=== PATIENT | female | born 1950 | race Caucasian/White ===

== ENCOUNTER → 2018-01-29 | Outpatient (CLI) | payer MEDICARE ==
--- NOTE | 2018-01-30 07:58 | MM ---
Reason for exam: additional evaluation requested from prior study. Last mammogram was performed 1 year and 1 month ago. History: Patient is postmenopausal. Family history of breast cancer in daughter at age 48. Benign excisional biopsy. Took hormonal contraceptives for 3 years. Physical Findings: Nurse did not find any significant physical abnormalities on exam. MG 3D Diag Mammo W/Cad PAUL Bilateral CC and MLO view(s) were taken. Prior study comparison: January 12, 2017, mammogram, performed at [facility]. January 10, 2017, mammogram, performed at [facility]. There are scattered fibroglandular densities. Previous mammotome biopsy in the left breast from interval biopsy in [place]. Two groups of calcifications left breast stable since 12/20/16. Additional 1 year follow up recommended to demonstrate 2 years of stability. These results were verbally communicated with the patient and result sheet given to the patient on 01/29/18. ASSESSMENT: Probably benign, BI-RAD 3 RECOMMENDATION: Follow-up diagnostic mammogram of both breasts in 1 year. (left breast total 2 year follow up for calcifications)
== END | disposition home or self-care (01) ==
LOC: RADMAMWWP 10:13
PROVIDERS: ATTEND Family Medicine
DX: R92.8 Other abnormal and inconclusive findings on diagnostic imaging of breast (principal); N63.0 Unspecified lump in unspecified breast
CPT/HCPCS: 77066; G0279; 77062

== ENCOUNTER → 2019-01-30 | Outpatient (CLI) | payer MEDICARE, OTHER ==
--- NOTE | 2019-01-30 10:15 | MM ---
Reason for exam: additional evaluation requested from prior study. Last mammogram was performed 1 year ago. History: Patient is postmenopausal. Family history of breast cancer in daughter at age 48. Benign excisional biopsy of the left breast. Took hormonal contraceptives for 3 years. Physical Findings: Nurse did not find any significant physical abnormalities on exam. MG 3D Diag Mammo W/Cad PAUL Bilateral CC and MLO view(s) were taken. Prior study comparison: January 29, 2018, bilateral MG 3d diag mammo w/cad PAUL. January 12, 2017, mammogram, performed at [facility]. The breast tissue is heterogeneously dense. This may lower the sensitivity of mammography. There are three groups of calcifications in the left upper outer quadrant, stable back to 2017, now can be deemed benign. No suspicious abnormality. No significant new findings when compared with previous films. These results were verbally communicated with the patient and result sheet given to the patient on 01/30/19. ASSESSMENT: Benign, BI-RAD 2 RECOMMENDATION: Routine screening mammogram of both breasts in 1 year.
== END | disposition home or self-care (01) ==
LOC: RADMAMWWP 07:57
PROVIDERS: ATTEND Family Medicine
DX: R92.0 Mammographic microcalcification found on diagnostic imaging of breast (principal)
CPT/HCPCS: 77066; G0279; 77062

== ENCOUNTER → 2020-02-18 | Outpatient (CLI) | payer MEDICARE, OTHER ==
--- NOTE | 2020-02-19 14:05 | MM ---
Reason for exam: screening (asymptomatic). Last mammogram was performed 1 year and 1 month ago. History: Patient is postmenopausal. Family history of breast cancer in daughter at age 48. Benign excisional biopsy of the left breast. Took hormonal contraceptives for 3 years. Physical Findings: A clinical breast exam by your physician is recommended on an annual basis and results should be correlated with mammographic findings. MG 3D Screening Mammo W/Cad Bilateral CC and MLO view(s) were taken. Prior study comparison: January 30, 2019, bilateral MG 3d diag mammo w/cad PAUL. January 29, 2018, bilateral MG 3d diag mammo w/cad PAUL. The breast tissue is heterogeneously dense. This may lower the sensitivity of mammography. Finding: There are typically benign course, grouped, diffuse/scattered calcifications in the left breast. Previous mammotome biopsy in the left breast. Focal asymmetry outer anterior CC view, not clearly evident on MLO view. New finding since January 30, 2019 and January 29, 2018. ASSESSMENT: Incomplete: need additional imaging evaluation, BI-RAD 0 RECOMMENDATION: Special view mammogram of the left breast. If lesion persists on supplemental views, image directed ultrasound is recommended. [facility] will attempt to contact patient to return for supplemental views and ultrasound if indicated.
== END | disposition home or self-care (01) ==
LOC: RADMAMWWP 12:59
PROVIDERS: ATTEND Family Medicine
DX: Z12.31 Encounter for screening mammogram for malignant neoplasm of breast (principal)
CPT/HCPCS: 77063; 77067

== ENCOUNTER → 2020-02-26 | Outpatient (CLI) | payer MEDICARE, OTHER ==
--- NOTE | 2020-02-26 10:18 | MM ---
Reason for exam: additional evaluation requested from abnormal screening. Last mammogram was performed less than 1 month ago. History: Patient is postmenopausal. Family history of breast cancer in daughter at age 44. Benign excisional biopsy of the left breast. Took hormonal contraceptives for 3 years. Physical Findings: Nurse did not find any significant physical abnormalities on exam. MG 3D Work Up W/Cad LT CC and MLO view(s) were taken of the left breast. Prior study comparison: February 18, 2020, bilateral MG 3d screening mammo w/cad. January 30, 2019, bilateral MG 3d diag mammo w/cad PAUL. Nodular outer left breast 8.1cm from nipple. These results were verbally communicated with the patient and result sheet given to the patient on 02/26/20. ASSESSMENT: Incomplete: need additional imaging evaluation, BI-RAD 0 RECOMMENDATION: Ultrasound of the left breast.
--- NOTE | 2020-02-26 10:21 | USB ---
Reason for exam: additional evaluation requested from abnormal screening. History: Patient is postmenopausal. Family history of breast cancer in daughter at age 44. Benign excisional biopsy of the left breast. Took hormonal contraceptives for 3 years. US Breast Workup Limited LT Left limited breast ultrasound including focal area of concern, retroareolar and axilla demonstrates a 0.5 x 0.4 x 0.4cm cystic cluster at 3 o'clock and a 0.6 x 0.3 x 0.5cm cystic lesion at 3 o'clock. These results were verbally communicated with the patient and result sheet given to the patient on 02/26/20. ASSESSMENT: Benign, BI-RAD 2 RECOMMENDATION: Return to routine screening mammogram schedule for both breasts.
== END | disposition home or self-care (01) ==
LOC: RADMAMWWP 07:38
PROVIDERS: ATTEND Family Medicine
DX: R92.8 Other abnormal and inconclusive findings on diagnostic imaging of breast (principal)
CPT/HCPCS: 77065; 76642; G0279; 77061

== ENCOUNTER → 2021-03-03 | Outpatient (CLI) | payer MEDICARE, OTHER ==
--- NOTE | 2021-03-08 12:19 | MM ---
Reason for exam: screening (asymptomatic). Last mammogram was performed 1 year ago. History: Patient is postmenopausal. Family history of breast cancer in daughter at age 44. Benign excisional biopsy of the left breast. Took hormonal contraceptives for 3 years. Physical Findings: A clinical breast exam by your physician is recommended on an annual basis and results should be correlated with mammographic findings. MG 3D Screening Mammo W/Cad Bilateral CC and MLO view(s) were taken. Prior study comparison: February 18, 2020, bilateral MG 3d screening mammo w/cad. January 30, 2019, bilateral MG 3d diag mammo w/cad PAUL. January 29, 2018, bilateral MG 3d diag mammo w/cad PAUL. December 20, 2016, mammogram, performed at [facility]. Finding: There are indeterminate calcifications in the 5 o'clock position of the left breast. New finding since February 18, 2020, January 30, 2019, January 29, 2018, and December 20, 2016. ASSESSMENT: Incomplete: need additional imaging evaluation, BI-RAD 0 RECOMMENDATION: Special view mammogram of the left breast. [facility] will attempt to contact patient to return for supplemental views.
== END | disposition home or self-care (01) ==
LOC: RADMAMWWP 08:45
PROVIDERS: ATTEND Family Medicine
DX: Z12.31 Encounter for screening mammogram for malignant neoplasm of breast (principal); Z80.3 Family history of malignant neoplasm of breast; Z78.0 Asymptomatic menopausal state
CPT/HCPCS: 77063; 77067

== ENCOUNTER → 2021-03-10 | Outpatient (CLI) | payer MEDICARE, OTHER ==
--- NOTE | 2021-03-11 14:56 | MM ---
Reason for exam: additional evaluation requested from abnormal screening. Last mammogram was performed less than 1 month ago. History: Patient is postmenopausal. Family history of breast cancer in daughter at age 44. Benign excisional biopsy of the left breast. Took hormonal contraceptives for 3 years. Physical Findings: Nurse did not find any significant physical abnormalities on exam. MG 3D Work Up W/Cad LT Spot compression CC and LM view(s) were taken of the left breast. Prior study comparison: March 03, 2021, bilateral MG 3d screening mammo w/cad. February 26, 2020, left breast MG 3d work up w/cad LT. February 18, 2020, bilateral MG 3d screening mammo w/cad. Finding: There are increased coarse heterogeneous, grouped/clustered calcifications in the upper outer quadrant, middle position of the left breast consistent with mass, possible fibroadenoma. New finding since March 03, 2021, February 26, 2020, and February 18, 2020. These results were verbally communicated with the patient and result sheet given to the patient on 03/10/21. ASSESSMENT: Suspicious, BI-RAD 4 RECOMMENDATION: Stereotactic core biopsy of the left breast. Called Dr. Frias's office with mammographic findings and has scheduled an appointment for the patient for 03/19/21 at 9:[address] Carnes. Biopsy scheduled for 04/01/21 at 8:00. PRELIMINARY REPORT CALLED AND FAXED TO DR. CARNES ON 03/11/21.
== END | disposition home or self-care (01) ==
LOC: RADMAMWWP 14:40
PROVIDERS: ATTEND Family Medicine
DX: R92.1 Mammographic calcification found on diagnostic imaging of breast (principal); Z80.3 Family history of malignant neoplasm of breast; Z78.0 Asymptomatic menopausal state
CPT/HCPCS: 77065; G0279; 77061

== ENCOUNTER → 2021-04-01 | Day surgery (SDC) | payer MEDICARE, OTHER ==
--- NOTE | 2021-04-01 09:38 | P.PCN ---
Date of Procedure: 04/01/21 Preoperative Diagnosis: Abnormal left breast mammogram Postoperative Diagnosis: Same Procedure(s) Performed: Left breast stereotactic core biopsy Anesthesia: local Surgeon: Katelin Velazquez Pathology: other (Breast tissue) Condition: stable Disposition: same day Indications for Procedure: Increasing calcifications in the left breast in the upper outer quadrant/mammogram reviewed with Dr. Smart Operative Findings: Radiographic of specimen revealed calcifications of concern had been sampled Description of Procedure: Christian is 70 year old white female who was noted to have increasing microcalcifications of concern in the left breast in the upper outer quadrant. Stereotactic core biopsy was recommended. Risks and benefits of the procedure were discussed with the patient. Risks include but are not limited to bleeding, infection, reaction to the anesthetic. Additionally if the lesion pathology were to be discordant additional samples may be recommended. Alternatives such as watchful waiting or resection in the operating room were discussed but not recommended. The patient was brought to the stereotactic core biopsy room. She was positioned prone on the lo-rad table. A CC from above approach was utilized. A spout positioner film was obtained. The area of concern was identified. The lesion was targeted. The breast was prepped using Betadine. 20 mL of 1% lidocaine were used to anesthetize the area of concern. A 9-gauge vacuum-assisted core rotating biopsy needle was driven to the correct coordinates. A prefire film was obtained. The needle appeared to be in the correct location. The needle was fired. A post fire film was obtained. The needle appeared to be in the correct location. 15 core specimens were obtained. Radiograph of the specimen revealed the calcifications of concern had been removed. The area of biopsy was lavaged. A secure marked top hat clip was placed. The clip appeared to be in the correct location. The patient tolerated the procedure in stable condition. She will follow with Dr. Ramsey in 1 week. The specimen was sent to pathology.
--- NOTE | 2021-04-01 10:56 | MM ---
Christian is 70 year old white female who was noted to have increasing microcalcifications of concern in the left breast in the upper outer quadrant. Stereotactic core biopsy was recommended. Risks and benefits of the procedure were discussed with the patient. Risks include but are not limited to bleeding, infection, reaction to the anesthetic. Additionally if the lesion pathology were to be discordant additional samples may be recommended. Alternatives such as watchful waiting or resection in the operating room were discussed but not recommended. The patient was brought to the stereotactic core biopsy room. She was positioned prone on the lo-rad table. A CC from above approach was utilized. A pharmacy innovation assistant film was obtained. The area of concern was identified. The lesion was targeted. The breast was prepped using Betadine. 20 mL of 1% lidocaine were used to anesthetize the area of concern. A 9-gauge vacuum-assisted core rotating biopsy needle was driven to the correct coordinates. A prefire film was obtained. The needle appeared to be in the correct location. The needle was fired. A post fire film was obtained. The needle appeared to be in the correct location. 15 core specimens were obtained. Radiograph of the specimen revealed the calcifications of concern had been removed. The area of biopsy was lavaged. A secure ankit top hat clip was placed. The clip appeared to be in the correct location. The patient tolerated the procedure in stable condition. She will follow with Dr. Ramsey in 1 week. The specimen was sent to pathology. Postprocedure radiograph revealed the secure ankit clip was in the correct location of the biopsy. [facility]
[2021-04-01 16:23] VITALS: BP 141/91; PULSE 79; RESP 18; TEMP 98.1
== END ==
LOC: RADMAMWWP 07:17
PROVIDERS: ATTEND Surgery
DX: N60.22 Fibroadenosis of left breast (principal); R92.0 Mammographic microcalcification found on diagnostic imaging of breast; N60.12 Diffuse cystic mastopathy of left breast; R92.8 Other abnormal and inconclusive findings on diagnostic imaging of breast
CPT/HCPCS: 88305; 19081; A4648; J2001

== ENCOUNTER → 2021-04-08 | Outpatient (CLI) | payer MEDICARE, OTHER ==
[2021-04-08 15:52] VITALS: BP 135/90; PULSE 88; RESP 16; TEMP 97.5
--- NOTE | 2021-04-08 16:19 | P.PN ---
Subjective Progress Note Date: 04/08/21 Principal diagnosis: Fibrocystic breast changes Patient is a 70 year old white female status post left breast core biopsy on 04-01-21. Pathology was benign concordant. Patient is doing well at this time. She has no complaints related to the procedure. Objective - Vital Signs Vital signs: Vital Signs Temp 97.5 F L 04/08/21 15:46 Pulse 88 04/08/21 15:46 Resp 16 04/08/21 15:46 BP 135/90 04/08/21 15:46 Pulse Ox Intake & Output 04/07/21 04/08/21 04/08/21 18:59 06:59 18:59 Weight 86.636 kg - Constitutional General appearance: Present: cooperative - EENT Eyes: Present: EOMI ENT: Present: hearing grossly normal - Neck Neck: Present: normal ROM - Respiratory Respiratory: bilateral: CTA - Cardiovascular Rhythm: regular Heart sounds: normal: S1, S2 - Integumentary Integumentary Comment(s): Biopsy site and dry Mild ecchymosis No evidence of hematoma or infection Assessment and Plan Assessment: Impression: fibrocystic changes left breast Plan: 1. left breast mammogram in 6 months with appointment at that time CC: Dr. Frias
== END ==
LOC: WWCWWP 15:26
PROVIDERS: ATTEND Surgery
DX: N60.12 Diffuse cystic mastopathy of left breast (principal)

== ENCOUNTER → 2021-09-30 | Outpatient (CLI) | payer MEDICARE, OTHER ==
--- NOTE | 2021-09-30 11:58 | MM ---
Reason for Exam: Follow-up at short interval from prior study. Last screening mammogram was performed 7 month(s) ago. Patient History: Menarche at age 13. First Full-Term at age 18. Postmenopausal. Patient used Hormonal Contraceptives for 3 years. Benign Excisional Biopsy on the left side. 04/01/2021, Benign Core Biopsy on the left side. Daughter had breast cancer, age 44. Risk Values: Usha 5 year model risk: 4.8%. NCI Lifetime model risk: 13.5%. Prior Study Comparison: 02/26/2020 Left Diagnostic Mammogram, [facility]. 03/03/2021 Bilateral Screening Mammogram, [facility]. 03/10/2021 Left Diagnostic Mammogram, [facility]. Tissue Density: Left: There are scattered fibroglandular densities. Findings: Analyzed By CAD. Previous 12-1 o'clock centrally located ribbon clip from prior biopsy. More recently placed upper outer quadrant microclip at the site of biopsy 7 months ago. A few scattered dystrophic and loosely grouped punctate calcifications remain unchanged. Mild benign vascular calcifications noted medially. No significant change from prior exams. Overall Assessment: Benign, BI-RAD 2 Management: Screening Mammogram of both breasts in 5 months. 1. Return to routine annual screening mammograms both breasts, due in 5 months. 2. Patient should continue monthly self breast exams. A clinical breast exam by your physician is recommended on an annual basis. 3. This exam should not preclude additional follow-up of suspicious palpable abnormalities. Results will be given to the patient during follow-up visit with her surgeon next week.. Electronically signed and approved by: Herb Moore M.D. Radiologist
== END | disposition home or self-care (01) ==
LOC: RADMAMWWP 10:47
PROVIDERS: ATTEND Surgery
DX: R92.8 Other abnormal and inconclusive findings on diagnostic imaging of breast (principal); Z78.0 Asymptomatic menopausal state; Z80.3 Family history of malignant neoplasm of breast
CPT/HCPCS: 77065; G0279; 77061

== ENCOUNTER → 2021-10-07 | Outpatient (CLI) | payer MEDICARE, OTHER ==
[2021-10-07 12:35] VITALS: BP 162/84; PULSE 81; RESP 16
--- NOTE | 2021-10-07 12:56 | P.PN ---
Subjective Progress Note Date: 10/07/21 Principal diagnosis: Fibrocystic breast changes Christian is a 71 year old white female seen in consultation for Dr. Frias regarding a mammographic abnormality in the left breast. She underwent a bilateral screening mammogram on [id number] after which magnification views of the left breast were requested. These were performed on [id number]. This revealed an increased coarse heterogeneous group/cluster calcifications in the upper outer quadrant middle portion of the left breast. Stereotactic core biopsy was recommended. The patient had not noted any new lumps masses or nodules of concern in either breast. She was not complaining of any nipple discharge or skin changes. She had not had any recent trauma or infection in the breast. She had a left breast sterobiopsy in the past which was benign. Has not had any other surgery on her breast. She underwent a left breast stero biopsy on 04-01-21 which was benign concordant. She had a repeat left breast mammogram on 09-30-21 which was BIRAD 2. He is not complaining of any new lumps masses or nodules of concern in either breast. 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 drugs: Marijuana 50 years ago - Constitutional Constitutional: Denies chills, Denies fever - EENT Eyes: denies blurred vision, denies pain Ears: deny: decreased hearing, tinnitus Ears, nose, mouth and throat: Denies headache, Denies sore throat - Breasts Breasts: bilateral: as per HPI - Cardiovascular Comment: HTN Cardiovascular: Denies chest pain, Denies shortness of breath - Respiratory Respiratory: Denies cough - Gastrointestinal Gastrointestinal: Denies abdominal pain, Denies diarrhea, Denies nausea, Denies vomiting - Genitourinary (Female) Genitourinary: Denies dysuria, Denies hematuria - Menstruation Menstruation: Reports postmenopausal - Musculoskeletal Musculoskeletal: Reports myalgias - Integumentary Integumentary: Denies pruritus, Denies rash - Neurological Neurological: Denies numbness, Denies weakness - Psychiatric Psychiatric: Denies anxiety, Denies depression - Endocrine Comment: diabetes - Hematologic/Lymphatic Comment: baby aspirin - Allergic/Immunologic Allergic/Immunologic: Reports as per HPI Objective - Vital Signs Vital signs: Vital Signs Temp Pulse 81 10/07/21 12:32 Resp 16 10/07/21 12:32 BP 162/84 10/07/21 12:32 Pulse Ox 96 10/07/21 12:32 FiO2 Intake & Output 10/06/21 10/07/21 10/07/21 18:59 06:59 18:59 Weight 86.636 kg - Exam BMI 31.8 - Constitutional General appearance: Present: cooperative - EENT Eyes: Present: EOMI ENT: Present: hearing grossly normal - Neck Neck: Present: normal ROM - Respiratory Respiratory: bilateral: CTA - Cardiovascular Rhythm: regular Heart sounds: normal: S1, S2 - Integumentary Integumentary: Present: normal turgor - Musculoskeletal Musculoskeletal: Present: gait normal - Psychiatric Psychiatric: Present: A&O x's 3, appropriate affect, intact judgment & insight - Additional findings Additional findings: Breast Exam: BRA: 42D inspection: Bladder grade 3 ptosis Palpation: Right breast: Multi-positional exam either cystic changes no dominant masses or nodules of concern Right axilla: No adenopathy of concern Left breast: Multi-positional exam no dominant masses or nodules of concern Left axilla: No adenopathy of concern Assessment and Plan Assessment: Impression: Diabetes Hypertension Fibrocystic breast changes Stereotactic core biopsy left breast benign/recent left breast mammogram [id number] benign BIRADS 2 Plan: Repeat bilateral mammogram in 6 months with physician exam at that time CC: Dr. Frias
== END ==
LOC: WWCWWP 11:53
PROVIDERS: ATTEND Surgery
DX: R92.8 Other abnormal and inconclusive findings on diagnostic imaging of breast (principal); N60.11 Diffuse cystic mastopathy of right breast; N60.12 Diffuse cystic mastopathy of left breast; E11.9 Type 2 diabetes mellitus without complications; I10 Essential (primary) hypertension; Z87.891 Personal history of nicotine dependence

== ENCOUNTER → 2022-03-10 | Outpatient (CLI) | payer MEDICARE, OTHER ==
--- NOTE | 2022-03-11 09:10 | MM ---
Reason for Exam: Screening (asymptomatic). Last screening mammogram was performed 12 month(s) ago. Patient History: Menarche at age 13. First Full-Term at age 18. Postmenopausal. Patient used Hormonal Contraceptives for 3 years. Benign Excisional Biopsy on the left side. 04/01/2021, Benign Core Biopsy on the left side. Daughter had breast cancer, age 44. Risk Values: Usha 5 year model risk: 4.8%. NCI Lifetime model risk: 13.5%. Prior Study Comparison: 12/20/2016 Screening Mammogram, [facility]. 01/10/2017 Screening Mammogram, [facility]. 01/12/2017 Screening Mammogram, [facility]. 01/29/2018 Bilateral Diagnostic Mammogram, [facility]. 01/30/2019 Bilateral Diagnostic Mammogram, [facility]. 02/18/2020 Bilateral Screening Mammogram, [facility]. 02/26/2020 Left Diagnostic Mammogram, [facility]. 03/03/2021 Bilateral Screening Mammogram, [facility]. 03/10/2021 Left Diagnostic Mammogram, [facility]. 09/30/2021 Left MG 3D diag mammo w/cad LT, [facility]. Tissue Density: There are scattered fibroglandular densities. Findings: Analyzed By CAD. There is no suspicious group of microcalcifications or new suspicious mass in either breast. There are 2 biopsy clips within the left breast. Scattered dystrophic and loosely grouped punctate calcifications remain unchanged. Benign vascular calcifications noted. No significant change from prior exams. Overall Assessment: Benign, BI-RAD 2 Management: Screening Mammogram of both breasts in 1 year. A clinical breast exam by your physician is recommended on an annual basis and results should be correlated with mammographic findings. Electronically signed and approved by: Daren Mcgovern D.O.
== END | disposition home or self-care (01) ==
LOC: RADMAMWWP 08:49
PROVIDERS: ATTEND Surgery
DX: Z12.31 Encounter for screening mammogram for malignant neoplasm of breast (principal); Z78.0 Asymptomatic menopausal state; Z80.3 Family history of malignant neoplasm of breast; Z98.890 Other specified postprocedural states
CPT/HCPCS: 77063; 77067

== ENCOUNTER → 2022-03-18 | Outpatient (CLI) | payer MEDICARE, OTHER ==
[2022-03-18 14:54] VITALS: BP 142/88; PULSE 70; RESP 18; TEMP 97.7
--- NOTE | 2022-03-18 15:40 | P.PN ---
Subjective Progress Note Date: 03/18/22 Principal diagnosis: fibrocystic breast changes Fibrocystic breast changes Christian is a 71 year old white female seen in consultation for Dr. Frias regarding a mammographic abnormality in the left breast. She underwent a bilateral screening mammogram on [id number] after which magnification views of the left breast were requested. These were performed on [id number]. This revealed an increased coarse heterogeneous group/cluster calcifications in the upper outer quadrant middle portion of the left breast. Stereotactic core biopsy was recommended. The patient had not noted any new lumps masses or nodules of concern in either breast. She was not complaining of any nipple discharge or skin changes. She had not had any recent trauma or infection in the breast. She had a left breast sterobiopsy in the past which was benign. Has not had any other surgery on her breast. She underwent a left breast stero biopsy on 04-01-21 which was benign concordant. She had a repeat left breast mammogram on 09-30-21 which was BIRAD 2. He is not complaining of any new lumps masses or nodules of concern in either breast. She had a bilateral mammogram on 03-10-23 which was BIRAD 2. She is not complaining of any lumps, masses, or nodules of concern. 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 drugs: Marijuana 50 years ago - Constitutional Constitutional: Denies chills, Denies fever - EENT Eyes: denies blurred vision, denies pain Ears: deny: decreased hearing, tinnitus Ears, nose, mouth and throat: Denies headache, Denies sore throat - Breasts Breasts: bilateral: as per HPI - Cardiovascular Comment: HTN Cardiovascular: Denies chest pain, Denies shortness of breath - Respiratory Respiratory: Denies cough - Gastrointestinal Gastrointestinal: Denies abdominal pain, Denies diarrhea, Denies nausea, Denies vomiting - Genitourinary (Female) Genitourinary: Denies dysuria, Denies hematuria - Menstruation Menstruation: Reports postmenopausal - Musculoskeletal Musculoskeletal: Reports myalgias - Integumentary Integumentary: Denies pruritus, Denies rash - Neurological Neurological: Denies numbness, Denies weakness - Psychiatric Psychiatric: Denies anxiety, Denies depression - Endocrine Comment: diabetes - Hematologic/Lymphatic Comment: baby aspirin - Allergic/Immunologic Allergic/Immunologic: Reports as per HPI Objective - Vital Signs Vital signs: Vital Signs Temp 97.7 F 03/18/22 14:50 Pulse 70 03/18/22 14:50 Resp 18 03/18/22 14:50 BP 142/88 03/18/22 14:50 Pulse Ox 98 03/18/22 14:50 FiO2 Intake & Output 03/17/22 03/18/22 03/18/22 18:59 06:59 18:59 Weight 86.636 kg - Constitutional General appearance: Present: cooperative - EENT Eyes: Present: EOMI ENT: Present: hearing grossly normal - Neck Neck: Present: normal ROM - Respiratory Respiratory: bilateral: CTA - Cardiovascular Rhythm: regular Heart sounds: normal: S1, S2 - Gastrointestinal General gastrointestinal: Present: soft - Integumentary Integumentary: Present: normal turgor - Musculoskeletal Musculoskeletal: Present: gait normal - Psychiatric Psychiatric: Present: A&O x's 3, appropriate affect, intact judgment & insight - Additional findings Additional findings: Breast Exam: BRA: 42D inspection: bilateral grade 3 ptosis Palpation: Right breast: Multi-positional exam fibrocystic changes no dominant masses or nodules of concern Right axilla: No adenopathy of concern Left breast: Multi-positional exam no dominant masses or nodules of concern, fibrocystic changes Left axilla: No adenopathy of concern Assessment and Plan Assessment: Impression: Diabetes Hypertension Fibrocystic breast changes recent bilateral mammogram; 03-10-22 BIRAD 2 high risk jose evaluation Plan: bilateral mammogram in 1 year with physician exam at that time CC: Dr. Amauri Frias
== END ==
LOC: WWCWWP 14:39
PROVIDERS: ATTEND Surgery
DX: Z12.31 Encounter for screening mammogram for malignant neoplasm of breast (principal); I10 Essential (primary) hypertension; R92.8 Other abnormal and inconclusive findings on diagnostic imaging of breast; E11.9 Type 2 diabetes mellitus without complications

== ENCOUNTER → 2023-03-14 | Outpatient (CLI) | payer MEDICARE, OTHER ==
--- NOTE | 2023-03-14 16:51 | MM ---
Reason for Exam: Screening (asymptomatic). Last mammogram was performed 1 year(s) and 1 month(s) ago. Patient History: Menarche at age 13. First Full-Term at age 18. Postmenopausal. Patient used Hormonal Contraceptives for 3 years. Benign Excisional Biopsy on the left side. 04/01/2021, Benign Core Biopsy on the left side. Daughter had breast cancer, age 44. Risk Values: Usha 5 year model risk: 4.8%. NCI Lifetime model risk: 12.9%. Prior Study Comparison: 03/10/2021 Left Diagnostic Mammogram, [facility]. 09/30/2021 Left MG 3D diag mammo w/cad LT, [facility]. 03/10/2022 Bilateral MG 3D screening mammo w/cad, [facility]. Tissue Density: There are scattered fibroglandular densities. Findings: Analyzed By CAD. Pattern appears symmetrical and stable. Benign vascular calcifications present. There are some grouped round calcifications in the outer anterior left breast. These are increasing. Magnification views recommended. Core marker within the left breast. Right Breast: No suspicious groups of microcalcifications, spiculated or lobular masses, architectural distortion or other secondary signs of malignancy are mammographically apparent. Overall Assessment: Incomplete: need additional imaging evaluation, BI-RAD 0 Management: Diagnostic Mammogram of the left breast. A negative mammogram report should not preclude additional follow up of suspicious palpable abnormalities. Patient should continue monthly self breast exam. A clinical breast exam by your physician is recommended on an annual basis and results should be correlated with mammographic findings. Electronically signed and approved by: Roni Smart D.O. Radiologis
== END | disposition home or self-care (01) ==
LOC: RADMAMWWP 08:04
PROVIDERS: ATTEND Surgery
DX: Z12.31 Encounter for screening mammogram for malignant neoplasm of breast (principal); Z78.0 Asymptomatic menopausal state; Z80.3 Family history of malignant neoplasm of breast
CPT/HCPCS: 77063; 77067

== ENCOUNTER → 2023-03-17 | Outpatient (CLI) | payer MEDICARE, OTHER ==
[2023-03-17 13:58] VITALS: BP 166/91; PULSE 74; RESP 18; TEMP 97.5
--- NOTE | 2023-03-17 14:15 | P.PN ---
Subjective Progress Note Date: 03/17/23 Principal diagnosis: fibrocystic breast changes Fibrocystic breast changes Christian is a 72 year old white female seen in consultation for Dr. Frias regarding a mammographic abnormality in the left breast. She underwent a bilateral screening mammogram on [id number] after which magnification views of the left breast were requested. These were performed on [id number]. This revealed an increased coarse heterogeneous group/cluster calcifications in the upper outer quadrant middle portion of the left breast. Stereotactic core biopsy was recommended. The patient had not noted any new lumps masses or nodules of concern in either breast. She was not complaining of any nipple discharge or skin changes. She had not had any recent trauma or infection in the breast. She had a left breast sterobiopsy in the past which was benign. Has not had any other surgery on her breast. She underwent a left breast stero biopsy on 04-01-21 which was benign concordant. She had a repeat left breast mammogram on 09-30-21 which was BIRAD 2. She is not complaining of any new lumps masses or nodules of concern in either breast. She had a bilateral mammogram on 03-14-23 which was BIRAD 0. Diagnostic left breast mammogram recommended. She is not complaining of any lumps, masses, or nodules of concern. 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 drugs: Marijuana 50 years ago - Constitutional Constitutional: Denies chills, Denies fever - EENT Eyes: denies blurred vision, denies pain Ears: deny: decreased hearing, tinnitus Ears, nose, mouth and throat: Denies headache, Denies sore throat - Breasts Breasts: bilateral: as per HPI - Cardiovascular Comment: HTN Cardiovascular: Denies chest pain, Denies shortness of breath - Respiratory Respiratory: Denies cough - Gastrointestinal Gastrointestinal: Denies abdominal pain, Denies diarrhea, Denies nausea, Denies vomiting - Genitourinary (Female) Genitourinary: Denies dysuria, Denies hematuria - Menstruation Menstruation: Reports postmenopausal - Musculoskeletal Musculoskeletal: Reports myalgias - Integumentary Integumentary: Denies pruritus, Denies rash - Neurological Neurological: Denies numbness, Denies weakness - Psychiatric Psychiatric: Denies anxiety, Denies depression - Endocrine Comment: diabetes - Hematologic/Lymphatic Comment: baby aspirin - Allergic/Immunologic Allergic/Immunologic: Reports as per HPI Objective - Vital Signs Vital signs: Vital Signs Temp 97.5 F L 03/17/23 13:50 Pulse 74 03/17/23 13:50 Resp 18 03/17/23 13:50 BP 166/91 03/17/23 13:50 Pulse Ox 97 03/17/23 13:50 FiO2 Intake & Output 03/16/23 03/17/23 03/17/23 18:59 06:59 18:59 Weight 83.915 kg - Constitutional General appearance: Present: cooperative - EENT Eyes: Present: EOMI ENT: Present: hearing grossly normal - Neck Neck: Present: normal ROM - Respiratory Respiratory: bilateral: CTA - Cardiovascular Heart sounds: normal: S1, S2 - Integumentary Integumentary: Present: normal turgor - Musculoskeletal Musculoskeletal: Present: gait normal - Psychiatric Psychiatric: Present: A&O x's 3, appropriate affect, intact judgment & insight - Additional findings Additional findings: Breast Exam: BRA: 42D inspection: bilateral grade 3 ptosis Palpation: Right breast: Multi-positional exam fibrocystic changes no dominant masses or nodules of concern Right axilla: No adenopathy of concern Left breast: Multi-positional exam no dominant masses or nodules of concern, fibrocystic changes Left axilla: No adenopathy of concern Assessment and Plan Assessment: Impression: Diabetes Hypertension Fibrocystic breast changes recent bilateral mammogram; 03-10-22 BIRAD 2 high risk jose evaluation; have discussed chemoprophylaxis and she has declined at this time Plan: left breast diagnostic mammogram follow up after this CC: Dr. Amauri Frias
== END ==
LOC: WWCWWP 13:38
PROVIDERS: ATTEND Surgery
DX: N60.12 Diffuse cystic mastopathy of left breast (principal); E11.9 Type 2 diabetes mellitus without complications; I10 Essential (primary) hypertension; Z87.891 Personal history of nicotine dependence; Z79.82 Long term (current) use of aspirin; Z79.899 Other long term (current) drug therapy; Z79.85 Long-term (current) use of injectable non-insulin antidiabetic drugs; Z79.84 Long term (current) use of oral hypoglycemic drugs; Z79.4 Long term (current) use of insulin

== ENCOUNTER → 2023-03-20 | Outpatient (CLI) | payer MEDICARE, OTHER ==
--- NOTE | 2023-03-20 10:09 | MM ---
Reason for Exam: Additional evaluation requested from abnormal screening. Last screening mammogram was performed less than 1 month ago. Patient History: Menarche at age 13. First Full-Term at age 18. Postmenopausal. Patient used Hormonal Contraceptives for 3 years. Benign Excisional Biopsy on the left side. 04/01/2021, Benign Core Biopsy on the left side. Daughter had breast cancer, age 44. Risk Values: Usha 5 year model risk: 4.8%. NCI Lifetime model risk: 12.9%. Prior Study Comparison: 09/30/2021 Left MG 3D diag mammo w/cad , [facility]. 03/10/2022 Bilateral MG 3D screening mammo w/cad, [facility]. 03/14/2023 Bilateral MG 3D screening mammo w/cad, [facility]. Tissue Density: Left: The breast tissue is heterogeneously dense. This may lower the sensitivity of mammography. Findings: Analyzed By CAD. There are an increasing number of calcifications in the upper outer aspect left breast 2:00 position 7 cm from the nipple. Overall Assessment: Suspicious, BI-RAD 4 Management: Stereotactic Core Biopsy of the left breast. A negative mammogram report should not preclude additional follow up of suspicious palpable abnormalities. Patient should continue monthly self breast exam. A clinical breast exam by your physician is recommended on an annual basis and results should be correlated with mammographic findings. Electronically signed and approved by: Roni Smart D.O. Radiologis
== END | disposition home or self-care (01) ==
LOC: RADMAMWWP 09:21
PROVIDERS: ATTEND Surgery
DX: R92.322 Mammographic fibroglandular density, left breast (principal); Z78.0 Asymptomatic menopausal state; Z80.3 Family history of malignant neoplasm of breast
CPT/HCPCS: 77061; 77065

== ENCOUNTER → 2023-04-06 | Day surgery (SDC) | payer MEDICARE, OTHER ==
[2023-04-06 07:53] VITALS: RESP 16; TEMP 98.1
[2023-04-06 08:46] VITALS: BP 160/81; PULSE 79
--- NOTE | 2023-04-07 08:48 | MM ---
Date of Procedure: 04/06/23 Preoperative Diagnosis: Microcalcifications of concern left breast Postoperative Diagnosis: Same Procedure(s) Performed: Left breast stereotactic core biopsy Anesthesia: local Surgeon: Katelin Velazquez Pathology: other (Breast tissue/radiograph of specimen reveals microcalcifications of concern) Condition: stable Disposition: same day Indications for Procedure: Microcalcifications of concern left breast Operative Findings: Radiograph of specimen reveals microcalcifications of concern Description of Procedure: Patient is a 72-year-old white female who on a routine mammogram was noted to have microcalcifications of concern in her left breast. They were increasing in number in the upper outer aspect of the breast. She is status post core biopsy of the left breast several times in the past, all have been benign. She has a history of a daughter with breast cancer at the age of 44. On examination the patient did not have any dominant lumps masses or nodules of concern in either breast. The patient was recommended to undergo a stereotactic core biopsy of the left breast. She understood and wished to proceed. She was taken to the core biopsy room. She was positioned in the upright chair. Transition Of Care Specialist film was obtained and the area of concern was identified. A lateral to medial approach was utilized. The lesion was targeted. The breast was prepped using chlorhexidine. 20 cc of 1% lidocaine were used to anesthetize the area of concern. A 9 gauge vacuum-assisted core rotating biopsy needle was driven to the correct coordinates. A prefire film was obtained. The needle was noted to be in the correct location. The needle was fired. The needle was noted to be in the correct location on a post fire film. 13 core biopsy specimens were obtained. Radiograph of the specimen revealed the calcifications of concern. A secure ankit Top-Hat clip was placed. The clip was noted to be in the correct location. The specimen was sent to pathology. The patient will follow-up with Dr. Ramsey in 1 week. The patient tolerated the procedure in stable condition. SHERIE
== END ==
LOC: RADMAMWWP 07:18
PROVIDERS: ATTEND Surgery
DX: D24.2 Benign neoplasm of left breast (principal); N60.12 Diffuse cystic mastopathy of left breast; R92.1 Mammographic calcification found on diagnostic imaging of breast
CPT/HCPCS: 88305; 19081; A4648; J2001

== ENCOUNTER → 2023-04-13 | Outpatient (CLI) | payer MEDICARE, OTHER ==
--- NOTE | 2023-04-13 10:16 | P.PN ---
Subjective Progress Note Date: 04/13/23 Principal diagnosis: fibrocystic breast changes Christian is a 72 year old white female status post stero-core biopsy of the left breast on 04-06-23 whic was benign concordant, fibrocystic changes. This was personally reviewed with radiology. She tolerated the procedure without any difficulty. Usha risk evaluation from bilateral mammogram in 03-14-2023: 5-year: 4.8% NCI lifetime risk: 12.9% Patient at this time has declined chemo-prophylaxis Objective - Constitutional General appearance: Present: cooperative - EENT Eyes: Present: EOMI ENT: Present: hearing grossly normal - Neck Neck: Present: normal ROM - Respiratory Respiratory: bilateral: CTA - Cardiovascular Heart sounds: normal: S1, S2 - Integumentary Integumentary Comment(s): Mild ecchymosis left breast biopsy site, no hematoma or infection - Psychiatric Psychiatric: Present: A&O x's 3, appropriate affect, intact judgment & insight Assessment and Plan Assessment: Impression: Patient's status post left breast stereotactic core biopsy on 04-06-2023 benign concordant Plan: Repeat left breast mammogram in 6 months Bilateral mammogram on 03-14-2023 revealed a Usha risk of 4.8% and a lifetime risk of 12.9%; discussed chemoprophylaxis and she has declined.
[2023-04-13 11:17] VITALS: BP 152/92; PULSE 70; RESP 18; TEMP 98
== END ==
LOC: WWCWWP 09:47
PROVIDERS: ATTEND Surgery
DX: N60.12 Diffuse cystic mastopathy of left breast (principal); Z79.82 Long term (current) use of aspirin

== ENCOUNTER → 2023-08-02 | Outpatient (CLI) | payer MEDICARE, OTHER ==
[2023-08-03 14:59] LABS: Zinc, Serum 88 ug/dL (60-130)
== END | disposition home or self-care (01) ==
LOC: LABWHC1 08-01 11:35
PROVIDERS: ATTEND Family Medicine
DX: Z13.6 Encounter for screening for cardiovascular disorders (principal); E27.40 Unspecified adrenocortical insufficiency; M85.80 Other specified disorders of bone density and structure, unspecified site; R41.9 Unspecified symptoms and signs involving cognitive functions and awareness
CPT/HCPCS: 36415; 82306; 82525; 82533; 82627; 84207; 84425; 84591; 84630

== ENCOUNTER → 2023-10-09 | Outpatient (CLI) | payer MEDICARE, OTHER ==
--- NOTE | 2023-10-09 08:48 | MM ---
Reason for Exam: Follow-up at short interval from prior study. Last screening mammogram was performed 6 month(s) ago. Patient History: Menarche at age 13. First Full-Term at age 18. Postmenopausal. Previous Hyperplasia w/o Atypia at age 72. Patient used Hormonal Contraceptives for 3 years. 04/06/2023, Benign MG stereo VAD BX LT on the left side. Benign Excisional Biopsy on the left side. 04/01/2021, Benign Core Biopsy on the left side. Daughter had breast cancer, age 44. Risk Values: Usha 5 year model risk: 4.9%. NCI Lifetime model risk: 12.3%. Prior Study Comparison: 01/29/2018 Bilateral Diagnostic Mammogram, [facility]. 01/30/2019 Bilateral Diagnostic Mammogram, [facility]. 02/18/2020 Bilateral Screening Mammogram, [facility]. 02/26/2020 Left Diagnostic Mammogram, [facility]. 03/03/2021 Bilateral Screening Mammogram, [facility]. 03/10/2021 Left Diagnostic Mammogram, [facility]. 09/30/2021 Left MG 3D diag mammo w/cad LT, [facility]. 03/10/2022 Bilateral MG 3D screening mammo w/cad, [facility]. 03/14/2023 Bilateral MG 3D screening mammo w/cad, [facility]. 03/20/2023 Left MG 3D work up w/cad LT, [facility]. Tissue Density: Left: The breasts are heterogeneously dense, which may obscure small masses. Findings: Analyzed By CAD. Microclip marker is are noted from prior biopsies. No new microcalcifications are identified. No evidence for mass or distortion. Overall Assessment: Benign, BI-RAD 2 Management: Screening Mammogram of both breasts in 6 months. . Results were given to the patient verbally at the time of exam. Patient should continue monthly self-breast exams. A clinical breast exam by your physician is recommended on an annual basis. This exam should not preclude additional follow-up of suspicious palpable abnormalities. Note on Usha scores and lifetime risk: 1. A Usha score greater than 3% is considered moderate risk. If this is the case, consider specialist referral to assess eligibility for a risk reducing agent. 2. If overall lifetime risk for the development of breast cancer is 20% or higher, the patient may qualify for future screening with alternating mammogram and breast MRI. Electronically signed and approved by: Elvin Porter M.D. Radiologis
== END | disposition home or self-care (01) ==
LOC: RADMAMWWP 07:53
PROVIDERS: ATTEND Surgery
DX: R92.8 Other abnormal and inconclusive findings on diagnostic imaging of breast (principal); R92.332 Mammographic heterogeneous density, left breast; Z78.0 Asymptomatic menopausal state; Z80.3 Family history of malignant neoplasm of breast
CPT/HCPCS: 77061; 77065

== ENCOUNTER → 2024-04-10 | Outpatient (CLI) | payer MEDICARE, OTHER ==
--- NOTE | 2024-04-10 14:33 | MM ---
Reason for Exam: Screening (asymptomatic). Last screening mammogram was performed 12 month(s) ago. Patient History: Menarche at age 13. First Full-Term at age 18. Postmenopausal. Previous Hyperplasia w/o Atypia at age 72. Patient used Hormonal Contraceptives for 3 years. 04/06/2023, Benign MG stereo VAD BX LT on the left side. Benign Excisional Biopsy on the left side. 04/01/2021, Benign Core Biopsy on the left side. Daughter had breast cancer, age 44. Sister had breast cancer, age 66. Risk Values: Usha 5 year model risk: 12.2%. NCI Lifetime model risk: 28.5%. Prior Study Comparison: 03/14/2023 Bilateral MG 3D screening mammo w/cad, [facility]. 03/20/2023 Left MG 3D work up w/cad LT, [facility]. 10/09/2023 Left MG 3D diag mammo w/cad LT, [facility]. Tissue Density: There are scattered areas of fibroglandular density. Findings: Analyzed By CAD. Left breast biopsy clip. Right breast: There is no suspicious group of microcalcifications or new suspicious mass. Benign-appearing calcifications right breast. Left breast: There is no suspicious group of microcalcifications or new suspicious mass. Benign-appearing calcifications left breast. Overall Assessment: Benign, BI-RAD 2 Management: Screening Mammogram of both breasts in [address] [facility] will attempt to contact patient to return for supplemental views and ultrasound if indicated. Patient should continue monthly self-breast exams. A clinical breast exam by your physician is recommended on an annual basis. This exam should not preclude additional follow-up of suspicious palpable abnormalities. Note on Usha scores and lifetime risk: 1. A Usha score greater than 3% is considered moderate risk. If this is the case, consider specialist referral to assess eligibility for a risk reducing agent. 2. If overall lifetime risk for the development of breast cancer is 20% or higher, the patient may qualify for future screening with alternating mammogram and breast MRI. [facility], , 04/10/2024 2:28 PM. Electronically signed and approved by: Juloi Landrum DO
== END | disposition home or self-care (01) ==
LOC: RADMAMWWP 13:03
PROVIDERS: ATTEND Family Medicine
DX: Z12.31 Encounter for screening mammogram for malignant neoplasm of breast (principal); R92.323 Mammographic fibroglandular density, bilateral breasts; Z78.0 Asymptomatic menopausal state; Z80.3 Family history of malignant neoplasm of breast
CPT/HCPCS: 77063; 77067